=== PATIENT | male | born 1970 | race Caucasian/White ===

== ENCOUNTER 2019-08-15 05:21 | Day surgery (SDC) | payer OTHER ==
[2019-08-12 11:42] LABS: HEMATOCRIT 44.1 % (37.9-51.0); HEMOGLOBIN 15.1 g/dL (13.5-17.0); MEAN CORPUSCULAR HEMOGLOBIN 31.3 pg (27.0-33.4); MEAN CORPUSCULAR HGB CONC 34.2 g/dL (32.0-36.0); MEAN CORPUSCULAR VOLUME 91 fl (80-97); PLATELET COUNT 287 10^3/uL (150-450); RED BLOOD COUNT 4.83 10^6/uL (4.35-5.55); RED CELL DISTRIBUTION WIDTH 13.4 % (11.5-14.0); WHITE BLOOD COUNT 6.8 10^3/uL (4.0-10.5)
[~2019-08-15 05:21] MED LIST: ACETAMINOPHEN 325 MG TABLET PO PRN; CEFAZOLIN 1 GM/D5W RTU 1 GM/50 ML RTUPB IV ONE; CEFAZOLIN 1 GM/D5W RTU 1 GM/50 ML RTUPB IV PRN; LACTATED RINGERS 1000 ML IV PRN; LIDOCAINE 0.5% INJ-PF (5 MG/ML) 50 ML SDV SUBCUT PRN
[2019-08-15] MEDS ORDERED: MIDAZOLAM 2 MG/2 ML INJ ONE (06:59)
[2019-08-15] MEDS ORDERED: HYDROMORPHONE HCL INJ/PF 2 MG/ML AMPULE ONE (06:59)
[2019-08-15] MEDS ORDERED: FENTANYL CITRATE INJ/PF 100 MCG/2 ML AMPUL ONE (06:59)
[2019-08-15] MEDS ORDERED: PROPOFOL INJ 200 MG/20 ML VIAL IV ONE (07:00)
[2019-08-15] MEDS ORDERED: BUPIVACAINE HCL 0.25% /EPINEPHRINE INJ/PF 30 ML SDV ONE (07:13)
[2019-08-15] MEDS ORDERED: BUPIVACAINE HCL 0.25% /EPINEPHRINE INJ/PF 30 ML SDV INJ ONE (09:00)
[2019-08-15] MEDS ORDERED: PROMETHAZINE HCL INJ 25 MG/1 ML VIAL IV PRN ×2 (09:01)
[2019-08-15] MEDS ORDERED: FENTANYL CITRATE INJ/PF 100 MCG/2 ML AMPUL IV PRN ×3 (09:01)
[2019-08-15] MEDS ORDERED: MEPERIDINE HCL/PF INJ 25 MG/1 ML DISP.SYRIN IV PRN (09:01)
[2019-08-15] MEDS ORDERED: DIPHENHYDRAMINE HCL 50 MG/ML VIAL IV PRN (09:01)
--- NOTE | 2019-08-15 09:16 | Operative Report ---
Nonrecallable Operative Report DATE OF SURGERY: 08/15/19 POSTOPERATIVE DIAGNOSIS: right inguinal hernia OPERATION: laparoscopic right inguinal hernia repair SURGEON: LORI RADFORD 1ST CAREER DEVELOPER: SAUNDRA AMEZQUITA ANESTHESIA: GA TISSUE REMOVED OR ALTERED: none COMPLICATIONS: none ESTIMATED BLOOD LOSS: 0 INTRAOPERATIVE FINDINGS: see note PROCEDURE: Patient was brought to the operating room awake alert in stable condition placed the operative table supine position external general anesthesia intubated. Abdomen was prepped and draped in usual sterile fashion. Appropriate timeout and site verification the procedure commenced. An infraumbilical incision was made with a 15 blade dissection was carried down through subtenons tissue with Bovie cautery the fascia of the rectus muscle was identified. A small transverse incision was made in the anterior rectus sheath and the rectus muscle was retracted laterally on the left side. The Spacemaker balloon was placed on top of the posterior sheath and manipulated down to the pubic symphysis. Balloon was then inflated under direct vision. After creating her space we remove the Spacemaker balloon in place the Hannah working port. Using a 30 degree scope with continue with the procedure to 5 mm ports were placed inferiorly in the midline. Attention was turned to the right side the peritoneum was dissected off the transversalis fascia with blunt dissection and this was continued distally until we identified the sac. The cord structures were identified and they were peeled away from the sac identifying the spermatic artery and the vas deferens. The sac was then dissected out of the out of the indirect inguinal hernia defect search was made for direct component there was none. Once this was done we then used a piece of polypropylene mesh 4 x 6 cm diameter with a slit cut down the side was placed into the retroperitoneum it was fixed posteriorly to Randall's ligament anterior to the rectus muscle lateral to the transverse Allis muscle being careful not to injure the lateral femoral cutaneous nerve. Cord was wrapped with the mesh. The tacks were absorbable tacks. After completing the right side attention soon the left side the patient had a previous anterior repair on the left side and we identified the cord structures and identified the sac sitting on top of the cord structures and therefore there was no indirect inguinal hernia. We also made a search in hasselbach triangle there was no direct component. Therefore then completed this portion the procedure we removed the ports we reduce the pneumoperitoneum was a fascial defect at the umbilical port site with 0 Vicryl and closed all 3 skin incisions with intracuticular 4-0 Monocryl Steri-Strips completed the procedure estimated blood loss was negligible sponge needle counts correct x2 the patient was transferred recovery in stable condition
--- NOTE | 2019-08-15 09:19 | Discharge Summary ---
Discharge Summary (SDC) - Discharge Final Diagnosis: Right inguinal hernia Date of Surgery: 08/15/19 Discharge Date: 08/15/19 Condition: Good Referrals: FELIPE KINGSLEY MD [Primary Care Provider] - Discharge Diet: As Tolerated Discharge Activity: Activity As Tolerated, No Lifting Over 10 Pounds Report the Following to Your Physician Immediately: Increase in Pain, Unusual Bleeding - needs a f/u with me in 1 wks.
[2019-08-15] MEDS ORDERED: OXYCODONE-ACETAMINOPHEN 5-325 MG TABLET PO PRN (09:43)
[2019-08-15] MEDS ORDERED: OXYCODONE-ACETAMINOPHEN 5-325 MG TABLET ONE (09:50)
[2019-08-15 11:16] VITALS: BP 132/87
[2019-08-15] MEDS ORDERED: ONDANSETRON HCL INJ/PF 4 MG/2 ML SDV ONE (13:45)
[2019-08-15] MEDS ORDERED: KETOROLAC TROMETHAMINE 60 MG/2 ML SDV ONE (13:45)
[2019-08-15] MEDS ORDERED: ROCURONIUM BROMIDE INJ 50 MG/5 ML VIAL IV ONE (13:45)
[2019-08-15] MEDS ORDERED: NEOSTIGMINE METHYLSULFATE 10 MG/10 ML VIAL ONE (13:45)
[2019-08-15] MEDS ORDERED: LIDOCAINE 2% INJ-PF (20 MG/ML) 2 ML AMPUL ONE (13:45)
[2019-08-15] MEDS ORDERED: DEXAMETHASONE SOD PHOSPHATE INJ 4 MG/1 ML VIAL ONE (13:45)
[2019-08-15] MEDS ORDERED: SUCCINYLCHOLINE CHLORIDE INJ 200 MG/10 ML VIAL ONE (13:45)
[2019-08-15] MEDS ORDERED: GLYCOPYRROLATE 1 MG/5 ML VIAL ONE (13:45)
== END 2019-08-15 10:40 | disposition home or self-care (01) ==
LOC: OROUT 05:21
PROVIDERS: ATTEND Surgery
DX: K40.90 Unilateral inguinal hernia, without obstruction or gangrene, not specified as recurrent (principal)
CPT/HCPCS: 36415; 85027; 49650; C1781; J2250; J3490 ×4; J0690; J1100; J1885; J3010; J2710; J0330; J2405; J2704; J1170